=== PATIENT | male | born 1970 | race Caucasian/White ===

== ENCOUNTER 2018-05-09 12:27 | Emergency (ER) | payer SELFPAY ==
[2018-05-09 13:09] VITALS: BMI 35.6
[2018-05-09 13:11] VITALS: BP 131/78; PULSE 61; RESP 18; TEMP 98.5; O2SAT 96
--- NOTE | 2018-05-09 14:13 | RAD ---
HISTORY: Cough COMPARISON: 10/31/2014 TECHNIQUE: Chest PA and lateral FINDINGS: LINES AND TUBES: None. LUNG AND PLEURA: The lungs are well inflated and clear. No pleural effusion or pneumothorax. HEART AND MEDIASTINUM: The heart is not enlarged. No aortic atherosclerotic calcification present. The hilar and mediastinal contours are within normal limits. SKELETAL STRUCTURES: The bony structures are within normal limits for the patient's age. VISUALIZED UPPER ABDOMEN: Normal. OTHER FINDINGS: None. IMPRESSION: No active pulmonary disease.
--- NOTE | 2018-05-09 14:36 | C.PDOC ---
History Of Present Illness Patient c/o productive cough with green sputum x 4 days. patient sts he is taking OTC cough syrup without improvement. Patient denies fever. Time Seen by Provider: 05/09/18 13:32 Chief Complaint (Nursing): Cough, Cold, Congestion History Per: Patient History/Exam Limitations: no limitations Past Medical History Reviewed: Historical Data, Nursing Documentation Vital Signs: Last Vital Signs Temp 98.5 F 05/09/18 13:09 Pulse 61 05/09/18 13:09 Resp 18 05/09/18 13:09 BP 131/78 05/09/18 13:09 Pulse Ox 96 05/09/18 13:09 - Medical History PMH: Gall Bladder Disease, Hypercholesterolemia (high triglycerides) Denies: Chronic Kidney Disease Comment Only: Benign Prostatic Hyperplasia (prostate problems) Surgical History: Cholecystectomy - [facility] Procedures LAPAROSCOPIC CHOLECYSTECTOMY (03/13/15) LAPAROSCOPIC ROBOTIC ASSISTED PROCEDURE (03/13/15) Family History: States: Unknown Family Hx - Social History Hx Tobacco Use: No Hx Alcohol Use: Yes Hx Substance Use: No - Immunization History Hx Tetanus Toxoid Vaccination: Yes Hx Influenza Vaccination: Yes Hx Pneumococcal Vaccination: No Review Of Systems Except As Marked, All Systems Reviewed And Found Negative. Physical Exam - Physical Exam Appears: Well, Non-toxic, No Acute Distress Skin: Normal Color, Warm Head: Atraumatic, Normacephalic Eye(s): bilateral: Normal Inspection Ear(s): Bilateral: Normal Nose: Normal Oral Mucosa: Moist Tongue: Normal Appearing Throat: Normal, No Erythema, No Exudate Neck: Normal ROM, No Midline Cervical Tenderness, No Paracervical Tenderness Chest: Symmetrical, No Deformity, No Tenderness Cardiovascular: Rhythm Regular Respiratory: Normal Breath Sounds, No Rales, No Rhonchi, No Wheezing Gastrointestinal/Abdominal: Soft, No Tenderness Extremity: Normal ROM, No Tenderness Neurological/Psych: Oriented x3, Normal Speech, Normal Cognition ED Course And Treatment O2 Sat by Pulse Oximetry: 96 - Other Rad CXR X-Ray: Viewed By Me, Read By Radiologist Interpretation: Accession No. : [id number]. Patient Name / ID : SHRADDHA CLARK I / [id number]. Exam Date : 05/09/2018 13:55:51 ( Approved ). Study Comment : Sex / Age : M / 47Y. Creator : Colleen Nathan MD. Dictator : Colleen Nathan MD. Bi Manager : Platform Material Handler Manager : Colleen Nathan MD. Approver2 : Report Date : 05/09/2018 14:09:26. My Comment : . HISTORY: Cough. COMPARISON: 10/31/2014. TECHNIQUE: Chest PA and lateral. FINDINGS: LINES AND TUBES: None. LUNG AND PLEURA: The lungs are well inflated and clear. No pleural effusion or pneumothorax. HEART AND M EDIASTINUM: The heart is not enlarged. No aortic atherosclerotic calcification present. The hilar and mediastinal contours are within normal limits. SKELETAL STRUCTURES: The bony structures are within normal limits for the patient's age. VISUALIZED UPPER ABDOMEN: Normal. OTHER FINDINGS: None. IMPRESSION: No active pulmonary disease. Progress Note: Zithromax po given, patient is stable to be d/c home with PMD/Clinic follow up. Disposition - Disposition Referrals: [facility] [Outside] Disposition: HOME/ ROUTINE Disposition Time: 14:34 Condition: STABLE Additional Instructions: Follow up with PMD/Clinic within 1-2 days. Return to ED if feel worse. Prescriptions: Brompheniramine/Pseudoephed/Dm [Bromfed Dm Cough 118 ml] 10 ml PO Q4 #300 ml Azithromycin [Zithromax] 250 mg PO DAILY #4 tab Instructions: Upper Respiratory Infection (ED) Forms: Mem[employer] (Yakut) - Clinical Impression Clinical Impression: Bronchitis
== END 2018-05-09 14:48 | disposition home or self-care (01) ==
LOC: C.ER 12:27
DX: J40 Bronchitis, not specified as acute or chronic (principal)